=== PATIENT | male | born 1970 | race Caucasian/White ===

== ENCOUNTER 2024-01-23 06:45 | Day surgery (SDC) | payer OTHER ==
[2024-01-22 11:30] VITALS: BMI 31.8
[~2024-01-23 06:45] MED LIST: Fluorouracil 100 MG, Enoxaparin 25 MG, EPINEPHrine 0.3 MG in Ophthalmic Irrigation Solu... IRR SCH
[2024-01-23] MEDS ORDERED: PROPOFOL 0 ML ONE (07:10)
[2024-01-23] MEDS ORDERED: fentaNYL PF 100 MCG/2 ML SYRINGE ONE (07:10)
[2024-01-23] MEDS ORDERED: Midazolam HCl 2 mg/2 ml Vial ONE (07:10)
[2024-01-23] MEDS ORDERED: Lidocaine 1% PF 5 ML VIAL ONE (07:11)
[2024-01-23] MEDS ORDERED: PHENYLephrine 2.5% Ophth Soln 15 ml Bottle ONE (07:16)
[2024-01-23] MEDS ORDERED: Cyclopentolate 1% Opth Drop 2 ML BOT ONE (07:16)
== END 2024-01-23 08:07 | disposition home or self-care (01) ==
LOC: SDC 06:45
PROVIDERS: ATTEND Ophthalmology Retina Specialist
DX: H33.021 Retinal detachment with multiple breaks, right eye (principal); Z53.9 Procedure and treatment not carried out, unspecified reason
CPT/HCPCS: J0171; J1650; J2250; J2704; J9190